=== PATIENT | female | born 1935 ===

== ENCOUNTER 2020-10-08 07:46 | Outpatient (CLI) | payer OTHER ==
[~2020-10-08 07:46] MED LIST: COZAAR25 MG PO; FOLIC ACID20 MG; FOSAMAX70 MG PO; IMBRUVICA140 MG; LASIX20 MG PO; LATANOPROST 0.7.5 ML; PRAVASTATIN SOD40 MG PO
== END 2020-10-08 07:54 | disposition home or self-care (01) ==
LOC: RAD 07:46
DX: R07.89 Other chest pain (principal)

== ENCOUNTER 2020-10-11 05:45 | Day surgery (SDC) | payer OTHER | END 2020-10-11 12:10 | disposition home or self-care (01) | LOC: CIR.AMB 05:45 | PROVIDERS: ATTEND Urology | DX: C67.8 Malignant neoplasm of overlapping sites of bladder (principal); N82.0 Vesicovaginal fistula; Z20.822 Contact with and (suspected) exposure to COVID-19 ==